=== PATIENT | male | born 1975 | race Caucasian/White ===

== ENCOUNTER 2025-05-28 07:27 | Emergency (ER) | payer BC, SELFPAY ==
--- OUTSIDE RECORDS SUMMARY | 2025-05-20 07:08 | XMS_ITS | Encounter Summary ---
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 Diagnoses Aneurysm of ascending aorta without rupture Thoracic ascending aortic aneurysm Procedures MRA Chest with Contrast Miriam Miller MD [address] [place] [address] Phone: tel: fax: [facility] [address] [place] [phone] Phone: tel: Referral ID Status Reason Start Date Expiration Date Visits Re quested Visits Authorized [id number] Closed 02/16/2025 02/16/2026 1 1 Reason for Visit * Auth/Cert (Routine) Specialty Diagnoses / Procedures Referred By Edson suresh Referred To Contact Cardiology [facility] [address] [place] [phone] Phone: tel: Referral ID Status Reason Start Date Expiration Date Visits Re quested Visits Authorized [id number] 1 1 Encounter Details Date Type Department Care Team (Latest Contact Info) Description 05/20/2025 7:08 AM CDT - 05/20/2025 11:59 PM CDT Hospital Encounter [facility] [address] [facility] [address] [place] [phone] Miriam Miller MD [address] [place] [address] Aneurysm of ascending aorta without rupture; Thoracic ascending aortic aneurysm Discharge Disposition: Home or Self Care Social History Tobacco Use Types Packs/Day Years Used Date Smoking Tobacco: Never Smokeless Tobacco: Never Alcohol Use Standard Drinks/Week Comments Yes 0 (1 standard drink = 0.6 oz pur e alcohol) 2 drinks week Adolescent Education Answer Date Record ed Getting School Help Needed Not on file 07/31 Sex and Gender Information Value Date Recorded Sex Assigned at Male 04/14/2019 8:19 AM CDT 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 Gender Identity Male 04/14/2019 8:19 AM CDT Sexual Orientation Straight 04/14/2019 8: 19 AM CDT documented as of this encounter Last Filed Vital Signs Vital Sign Reading Time Taken Comments Blood Pressure 134/90 05/20/2025 8:00 AM CDT Pulse 66 05/20/2025 8:00 AM CDT Temperature - - Respiratory Rate - - Oxygen Saturation - - Inhaled Oxygen Concentration - - Weight - - Height - - Body Mass Index - - documented in this encounter Medications at Time of Discharge albuterol (PROAIR HFA) 108 (90 Base) MCG/ACT inhaler Inhale 1-2 puffs into the lungs every 6 hours as needed 10/17/2018 SUMAtriptan (IMITREX) 50 MG tablet take 1-2 tablets by mouth as needed for headache. max 200mg in 24 hours 11 10/20/2018 documented as of this encounter Plan of Treatment Not on file documented as of this encounter Procedures Procedure Name Priority Date/Time Associated Diagnosis Comments MRA CHEST W CONTRAST Routine 05/20/2025 9:05 AM CDT Aneurysm of ascending aorta without rupture Thoracic ascending aortic aneurysm documented in this encounter Results * MRA Chest with Contrast (05/20/2025 9:05 AM CDT) Anatomical Region Laterality Modality Chest, SUBRAD IR PROCEDURE, UMP MR MRA, RAD MR Magnetic Resonance 05/20/2025 8:47 AM CDT Narrative 05/20/2025 1:50 PM CDT [facility] CMR Report Name: MAGEN JOEL : Scan Date: Electronically signed by Priyank Omer 13:50:11 SUMMARY ===== Clinical history: Aorta dilatation Comparison MRA: none 1. Aortic root dilatation measuring 4.3 cm. Ascending aorta dilatation measuring 4 cm. The transverse arch and descending thoracic aorta are normal in size without an aneurysm or dissection. 2. The aortic arch is left sided. There is a variant branching pattern of the arch vessels with direct origin of the left vertebral artery from the aortic arch. There is no coarctation. 3. The main and proximal branch pulmonary arteries are normal in size. 4. The systemic venous connections are normal. CONCLUSIONS: Aortic root dilatation measuring 4.3 cm. Ascending aorta dilatation measuring 4 cm. VASCULAR ===== UPPER VASCULAR ----- --- EVALUATION OF THE THORACIC AORTA COMMENTS (no comments) . ----- . EVALUATION DETAILS (Thoracic Aorta) ----- AORTIC ROOT Sinus of Valsalva Max Diameter A: 4.3 cm Sinus of Valsalva Max Diameter B: 3.9 cm Sinotubular Junction Max Diameter A: 3.7 cm Sinotubular Junction Max Diameter B: 3.3 cm + ----- + ASCENDING AORTA Dimension A: 4 cm Dimension B: 3.9 cm + ----- + ARCH OF THE AORTA Dimension A: 2.9 cm Dimension B: 2.6 cm + ----- + ISTHMUS OF THE AORTA Dimension A: 3 cm Dimension B: 2.8 cm + ----- + MID-DESCENDING AORTA Dimension A: 2.5 cm Dimension B: 2.4 cm + ----- + DISTAL DESCENDING AORTA Dimension A: 2.3 cm Dimension B: 2.2 cm . ----- . SCAN INFO ===== GENERAL ----- --- CONTRAST AGENT TYPE: Gadavist GD CONCENTRATION: 0.5 M VOLUME ADMINISTERED: 18 ml DOSAGE: 0.10 mmol/kg VITALS HEIGHT: 76.0 in HEIGHT: 193.0 cm WEIGHT: 199.0 lbs WEIGHT: 90.3 kgs BSA: 2.21 m^2 PULSE SEQUENCES 3D contrast enhanced MRA SETUP REASON(S) FOR SCAN: Aorta REFERRING PHYSICIAN: MIRIAM MILLER ATTENDING PHYSICIAN: MIRIAM JIN ----- --- ICD10 Codes I71.21, I71.21 Report generated by [employer], a product of [employer] Procedure Note Priyank Omer MD - 05/20/2025 [facility] CMR Report Name: MAGEN JOEL : Scan Date: Electronically signed by Priyank Omer 13:50:11 SUMMARY ===== Clinical history: Aorta dilatation Comparison MRA: none 1. Aortic root dilatation measuring 4.3 cm. Ascending aorta dilatationmeasuring 4 cm. The transverse arch and descending thoracic aorta are normal in size without an aneurysm ordissection. 2. The aortic arch is left sided. There is a variant branching pattern ofthe arch vessels with direct origin of the left vertebral artery from the aortic arch. There is nocoarctation. 3. The main and proximal branch pulmonary arteries are normal in size. 4. The systemic venous connections are normal. CONCLUSIONS: Aortic root dilatation measuring 4.3 cm. Ascending aorta dilatationmeasuring 4 cm. VASCULAR ===== UPPER VASCULAR ----- --- EVALUATION OF THE THORACIC AORTA COMMENTS (no comments) . ----- . EVALUATION DETAILS (Thoracic Aorta) ----- AORTIC ROOT Sinus of Valsalva Max Diameter A: 4.3 cm Sinus of Valsalva Max Diameter B: 3.9 cm Sinotubular Junction Max Diameter A: 3.7 cm Sinotubular Junction Max Diameter B: 3.3 cm + ----- + ASCENDING AORTA Dimension A: 4 cm Dimension B: 3.9 cm + ----- + ARCH OF THE AORTA Dimension A: 2.9 cm Dimension B: 2.6 cm + ----- + ISTHMUS OF THE AORTA Dimension A: 3 cm Dimension B: 2.8 cm + ----- + MID-DESCENDING AORTA Dimension A: 2.5 cm Dimension B: 2.4 cm + ----- + DISTAL DESCENDING AORTA Dimension A: 2.3 cm Dimension B: 2.2 cm . ----- . SCAN INFO ===== GENERAL ----- --- CONTRAST AGENT TYPE: Gadavist GD CONCENTRATION: 0.5 M VOLUME ADMINISTERED: 18 ml DOSAGE: 0.10 mmol/kg VITALS HEIGHT: 76.0 in HEIGHT: 193.0 cm WEIGHT: 199.0 lbs WEIGHT: 90.3 kgs BSA: 2.21 m^2 PULSE SEQUENCES 3D contrast enhanced MRA SETUP REASON(S) FOR SCAN: Aorta REFERRING PHYSICIAN: MIRIAM IMLLER ATTENDING PHYSICIAN: MIRIAM JIN ----- --- ICD10 Codes I71.21, I71.21 Report generated by [employer], a product of [employer] Miriam Miller MD [facility] [place] Edited Re sult - Final documented in this encounter Visit Diagnoses Diagnosis Aneurysm of ascending aorta without rupture documented in this encounter Administered Medications Inactive Administered Medications - up to 3 most recent administrations Medication Order MAR Action Action Date Dose Rate Site gadobutrol (GADAVIST) injection 18 mL 18 mL, Intravenous, ONCE, On Carmen 05/20/25 at 0900, For 1 dose, Supplied by, and administered by MRI. $Given 05/20/2025 9:06 AM CDT 18 mLs sodium chloride (PF) 0.9% PF flush 10-100 mL 10-100 mL, Intravenous, ONCE, On Carmen 05/20/25 at 0900, For 1 dose $Given 05/20/2025 9:14 AM CDT 40 mLs documented in this encounter Care Teams Auto Painter Helper Relationship Specialty Start Date End Date Juan Noble MD PCP - General Family Medicine - Sports Medicine 04/07/19 Miriam Miller MD [address] [place] [address] Cardiovascular Disease 05/17/23 Miriam Miller MD [address] [place] [address] Assigned Heart and Vascular Provider 12/06/23 documented as of this encounter
--- OUTSIDE RECORDS SUMMARY | 2025-05-20 07:08 | XMS_ITS | Encounter Summary ---
Author Organization [place] Address [address] [place] [address] Care Team Providers Care Manager Cardiac Cath Name Role Phone Juan Noble MD Primary Care Provider [phone] Myesha Menendez MD Unavailable [phone] Myesha Menendez MD Unavailable [phone] Reason for Referral * CV Testing (Routine) - Closed Specialty Diagnoses / Procedures Referred By Contac t Referred To Contact Cardiology Diagnoses Aneurysm of ascending aorta without rupture Thoracic ascending aortic aneurysm Procedures Echocardiogram Complete ZZHC TTE W/DOPPLER, COMPLETE ZZHC ECHO COMPLETE W DOPPLER W CONTRAST ZZHC ECHO COMPLETE W DOPPLER W/O CONTRAST ZZHC IV PUSH SINGLE, INITIAL SUBSTANCE ZZHC US GUIDE FOR PERICARDIOCENTESIS ZZHC ECHO MYOCARD BX ZZC INJECTION, PERFLUTREN LIPID MICROSPHERES, PER ML ZZHC STATISTIC IV PUSH SINGLE INITIAL SUBSTANCE FL ECHO MYOCARD BX FL INJECTION, PERFLUTREN LIPID MICROSPHERES, PER ML FL TTE W/DOPPLER, COMPLETE FL IV PUSH SINGLE, INITIAL SUBSTANCE FL TTE W/DOPPLER, COMPLETE FL TTE W/DOPPLER, COMPLETE HC US GUIDE FOR PERICARDIOCENTESIS HC ECHO MYOCARD BX HC IV PUSH SINGLE, INITIAL SUBSTANCE HC STATISTIC IV PUSH SINGLE INITIAL SUBSTANCE HC ECHO COMPLETE W DOPPLER W CONTRAST HC ECHO COMPLETE W DOPPLER W/O CONTRAST Myesha Menendez MD [address] [place] [address] Phone: tel: fax: [facility] [address] [address] Phone: tel: Referral ID Status Reason Start Date Expiration Date Visits Re quested Visits Authorized [id number] Closed 02/16/2025 02/16/2026 1 1 Reason for Visit * Auth/Cert (Routine) Specialty Diagnoses / Procedures Referred By Edson t Referred To Contact Cardiology [address] [address] Phone: tel: Referral ID Status Reason Start Date Expiration Date Visits Re quested Visits Authorized [id number] 1 1 Encounter Details Date Type Department Care Team (Latest Contact Info) Description 05/20/2025 7:08 AM CDT - 05/20/2025 11:59 PM CDT Hospital Encounter [address] [phone] Myesha Menendez MD [address] [place] [id number] Aneurysm of ascending aorta without rupture; Thoracic [...] AM CDT 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 Gender Identity Male 04/14/2019 8:19 AM CDT Sexual Orientation Straight 04/14/2019 8: 19 AM CDT documented as of this encounter Medications at Time of Discharge [...] Procedure Name Priority Date/Time Associated Diagnosis Comments ECHO COMPLETE Routine 05/20/2025 8:13 AM CDT Aneurysm of ascending aorta without rupture Thoracic ascending aortic aneurysm documented in this encounter Results * ECHO COMPLETE (05/20/2025 8:13 AM CDT) Pathologist [facility] LVEF 60-65% CARDIOLOGY RESULTS Anatomical Region Laterality Modality Echocardiography 05/20/2025 7:40 AM CDT Narrative 05/20/2025 9:54 AM CDT [id number]^ANGELA^MYESHA^ [facility] [address] [facility] [address] [place] [address] Name: MAGEN JOEL : 1975 Study Date: 05/20/2025 07:40 AM Age: 50 yrs Gender: Male Patient Location: [facility] Reason For Study: Aneurysm of ascending aorta without rupture, Thoracic ascending Ordering Physician: Myesha Menendez MD Referring Physician: Myesha Menendez MD Performed By: Evangelist Anderson BSA: 2.2 m2 Height: 76 in Weight: 199 lb HR: 60 BP: 106/65 mmHg Procedure Echocardiogram with two-dimensional, color and spectral Doppler. Interpretation Summary Left ventricular systolic function is normal. The visual ejection fraction is 60-65%. The right ventricle is normal in size and function. There is no mitral valve stenosis. Highly mobile mitral valve chordae tendineae with normal leaflet closure, no mitral valve prolapse likely redundant/elongated chordae tendineae, though torn chordae tendineae cannot be exlcuded. Trace mitral regurgitation. IVC diameter and respiratory changes fall into an intermediate range suggesting an RA pressure of 8 mmHg. Aortic root dilatation is present. Max diameter of the visualized portion 4.1 cm. Borderline ascending aorta, max diameter of visualized portion 3.9 cm. This study was compared to a TTE from 04/14/2019. Aortic root previously measured 3.9cm. Mitral valve apparatus better visualized on present study, likely no significant change. Left Ventricle The left ventricle is normal in size. There is normal left ventricular wall thickness. Left ventricular systolic function is normal. The visual ejection fraction is 60-65%. Left ventricular diastolic function is normal. No regional wall motion abnormalities noted. Right Ventricle The right ventricle is normal in size and function. Atria The left atrium is mildly dilated. Right atrial size is normal. There is no color Doppler evidence of an atrial shunt. Mitral Valve Highly mobile mitral valve chordae tendineae with normal leaflet closure, no mitral valve prolapse likely redundant/elongated chordae tendineae, though torn chordae tendineae cannot be exlcuded. Trace mitral regurgitation. There is no mitral valve stenosis. Tricuspid Valve There is trace tricuspid regurgitation. The right ventricular systolic pressure is approximated at 14.6 mmHg plus the right atrial pressure. Aortic Valve There is mild trileaflet aortic sclerosis. Pulmonic Valve The pulmonic valve is not well seen, but is grossly normal. Vessels Aortic root dilatation is present. Max diameter of the visualized portion 4.1 cm. Borderline ascending aorta, max diameter of visualized portion 3.9 cm. IVC diameter and respiratory changes fall into an intermediate range suggesting an RA pressure of 8 mmHg. MMode/2D Measurements & Calculations IVSd: 0.72 cm LVIDd: 5.4 cm LVIDs: 3.6 cm LVPWd: 0.84 cm FS: 33.6 % LV mass(C)d: 150.3 grams LV mass(C)dI: 68.0 grams/m2 Ao root diam: 4.1 cm asc Aorta Diam: 3.9 cm LVOT diam: 2.6 cm LVOT area: 5.3 cm2 Ao root diam index Ht(cm/m): 2.1 Ao root diam index BSA (cm/m2): 1.9 Asc Ao diam index BSA (cm/m2): 1.8 Asc Ao diam index Ht(cm/m): 2.0 LA Volume (BP): 80.1 ml LA Volume Index (BP): 36.2 ml/m2 RWT: 0.31 Doppler Measurements & Calculations MV E max juan: 68.0 cm/sec MV A max juan: 54.2 cm/sec MV E/A: 1.3 MV dec time: 0.13 sec PA acc time: 0.13 sec TR max juan: 191.0 cm/sec TR max P.6 mmHg E/E' av.3 Lateral E/e': 3.6 Medial E/e': 7.1 RV S Juan: 16.8 cm/sec Report approved by: Ehsan Pinon MD on 05/20/2025 09:54 AM Procedure Note Ehsan Pinon MD - 05/20/2025 [id number]^ANGELA^MYESHA^ [facility] [address] [facility] [address] [place] [address] Name: MAGEN JOEL : 1975 Study Date: 05/20/2025 07:40 AM Age: 50 yrs Gender: Male Patient Location: [facility] Reason For Study: Aneurysm of ascending aorta without rupture, Thoracic ascending Ordering Physician: Myesha Menendez MD Referring Physician: Myesha Menendez MD Performed By: Evangelist Anderson BSA: 2.2 m2 Height: 76 in Weight: 199 lb HR: 60 BP: 106/65 mmHg Procedure Echocardiogram with two-dimensional, color and spectral Doppler. Interpretation Summary Left ventricular systolic function is normal. The visual ejection fractionis 60-65%. The right ventricle is normal in size and function. There is no mitral valve stenosis. Highly mobile mitral valve chordae tendineae with normal leaflet closure, no mitral valve prolapse likely redundant/elongated chordae tendineae, though torn chordae tendineaecannot be exlcuded. Trace mitral regurgitation. IVC diameter and respiratory changes fall into an intermediate range suggesting an RA pressure of 8 mmHg. Aortic root dilatation is present. Max diameter of the visualized portion4.1 cm. Borderline ascending aorta, max diameter of visualized portion 3.9 cm. This study was compared to a TTE from 04/14/2019. Aortic root previously measured 3.9cm. Mitral valve apparatus better visualized on presentstudy, likely no significant change. Left Ventricle The left ventricle is normal in size. There is normal left ventricularwall thickness. Left ventricular systolic function is normal. The visualejection fraction is 60-65%. Left ventricular diastolic function is normal. Noregional wall motion abnormalities noted. Right Ventricle The right ventricle is normal in size and function. Atria The left atrium is mildly dilated. Right atrial size is normal. There isno color Doppler evidence of an atrial shunt. Mitral Valve Highly mobile mitral valve chordae tendineae with normal leaflet closure,no mitral valve prolapse likely redundant/elongated chordae tendineae,though torn chordae tendineae cannot be exlcuded. Trace mitral regurgitation.There is no mitral valve stenosis. Tricuspid Valve There is trace tricuspid regurgitation. The right ventricular systolic pressure is approximated at 14.6 mmHg plus the right atrial pressure. Aortic Valve There is mild trileaflet aortic sclerosis. Pulmonic Valve The pulmonic valve is not well seen, but is grossly normal. Vessels Aortic root dilatation is present. Max diameter of the visualized portion4.1 cm. Borderline ascending aorta, max diameter of visualized portion 3.9 cm.IVC diameter and respiratory changes fall into an intermediate rangesuggesting an RA pressure of 8 mmHg. MMode/2D Measurements & Calculations IVSd: 0.72 cm LVIDd: 5.4 cm LVIDs: 3.6 cm LVPWd: 0.84 cm FS: 33.6 % LV mass(C)d: 150.3 grams LV mass(C)dI: 68.0 grams/m2 Ao root diam: 4.1 cm asc Aorta Diam: 3.9 cm LVOT diam: 2.6 cm LVOT area: 5.3 cm2 Ao root diam index Ht(cm/m): 2.1 Ao root diam index BSA (cm/m2): 1.9 Asc Ao diam index BSA (cm/m2): 1.8 Asc Ao diam index Ht(cm/m): 2.0 LA Volume (BP): 80.1 ml LA Volume Index (BP): 36.2 ml/m2 RWT: 0.31 Doppler Measurements & Calculations MV E max juan: 68.0 cm/sec MV A max juan: 54.2 cm/sec MV E/A: 1.3 MV dec time: 0.13 sec PA acc time: 0.13 sec TR max juan: 191.0 cm/sec TR max P.6 mmHg E/E' av.3 Lateral E/e': 3.6 Medial E/e': 7.1 RV S Juan: 16.8 cm/sec Report approved by: Ehsan Pinon MD on 05/20/2025 09:54 AM Myesha Menendez MD CV ECHO ORDERABLES Edited Re sult - Final documented in this encounter Visit Diagnoses Diagnosis Aneurysm of ascending aorta without rupture documented in this encounter Care Teams Manager Cardiac Cath Relationship Specialty Start Date End Date Juan Noble MD PCP - General Family Medicine - Sports Medicine 04/07/19 Myesha Menendez MD [address] [place] [id number] Cardiovascular Disease 05/17/23 Myesha Menendez MD [address] [place] [address] Assigned Heart and Vascular Provider 12/06/23 documented as of this encounter
[2025-05-28 07:39] VITALS: BP 134/106; PULSE 86; RESP 20; TEMP 36.6; O2SAT 99
--- NOTE | 2025-05-28 08:14 | CRLHL7_ITS ---
For Patients: As a result of the Century Cures Act, medical imaging exams and procedure reports are released immediately into your electronic medical record. You may view this report before your referring provider. If you have questions, please contact your health care provider. Indication: . Technique: Abdomen 3 view. Comparison: None. 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 Increased stool burden seen within the large bowel most notably within the ascending colon. No acute osseous abnormality. Dictated by Hever Owen MD @ 05/28/2025 9:01:37 AM (Electronically Signed)
--- NOTE | 2025-05-28 08:16 | ED.GENADULT ---
HPI - General Adult General Chief complaint: Abdominal Pain Stated complaint: constipation and bleeding hemorrhoid Time Seen by Provider: 05/28/25 07:45 History of Present Illness HPI narrative: Patient is a 50 year white male who has not had a history constipation but was able have a bowel movement this morning has rectal pain as well as abdominal pain. He passed a little bit of blood he has a history of an inguinal hernia repair as a child. No other abdominal surgery. He has been generally healthy. He is on albuterol as needed sumatriptan amlodipine. Patient reports travel to [place] but no constant diarrhea or vomiting he is not nauseous or vomiting now. Reports lower abdominal cramping abdominal pain he has passed a little bit of blood. He has had a history of external hemorrhoids. No chest pain, shortness of breath. No history of chronic inflammatory bowel disease Related Data Home Medications ?Medication ?Instructions ?Recorded ?Confirmed albuterol sulfate 90 mcg/actuation 2 puff inhalation Q4H PRN 11/26/22 05/28/25 aerosol inhaler sumatriptan succinate 50 mg tablet 50 mg PO PRN 11/26/22 11/26/22 amlodipine 10 mg tablet 10 mg PO DAILY blood pressure 05/28/25 05/28/25 Allergies Allergy/AdvReac Type Severity Reaction Status Date / Time No Known Drug Allergies Allergy Verified 05/28/25 07:45 Review of Systems Status of ROS: Reports: 6 or more systems reviewed and unremarkable except as noted in History and below [facility] Medical History Migraines ?G43.909 - Migraine, unspecified, not intractable, without status migrainosus (ICD-10) Asthma ?J45.909 - Unspecified asthma, uncomplicated (ICD-10) Social History Smoking Status: Never smoker Do you use any of these nicotine containing products: None Second hand tobacco smoke exposure: No How often do you have a drink containing alcohol: never AUDIT-C Alcohol total score: 0 Non-prescribed substance use: denies use Exam Narrative: Exam Narrative: Objective: Vital signs show slightly elevated diastolic pressure, otherwise afebrile Alert or x3, distractible No facial asymmetry no scleral icterus Abdomen benign soft no rebound or peritonitis. Anal exam shows a some tiny fissure but no obvious external hemorrhoids. Because of his pain level a digital exam was not done. Extremities are no edema Neurologic nonfocal Const: Vital Signs, click to edit/add: Vital Signs - 24 hr 05/28/25 07:39 Temperature 98 F Pulse Rate [Pulse Oximeter] 86 Respiratory Rate 20 Blood Pressure [Ri ght Upper Arm] 134/106 H Pulse Oximetry 99 Oxygen Delivery Me thod Room Air Course Vital Signs Vital signs: Initial Vital Signs Temperature 98 F 05/28/25 07:39 Temperature Source Temporal Artery Scan 05/28/25 07:39 Pulse Rate 86 05/28/25 07:39 Respiratory Rate 20 05/28/25 07:39 Blood Pressure 134/106 H 05/28/25 07:39 Blood Pressure Mean 115 H 05/28/25 07:39 Blood Pressure Position Sitting 05/28/25 07:39 Pulse Oximetry 99 05/28/25 07:39 Oxygen Delivery Method Room Air 05/28/25 07:39 Vital Signs Temperature 98 F 05/28/25 07:39 Pulse Rate 86 05/28/25 07:39 Respiratory Rate 20 05/28/25 07:39 Blood Pressure 134/106 H 05/28/25 07:39 Pulse Oximetry 99 05/28/25 07:39 Oxygen Delivery Method Room Air 05/28/25 07:39 Temperature 98 F 05/28/25 07:39 Pulse Rate 86 05/28/25 07:39 Respiratory Rate 20 05/28/25 07:39 Blood Pressure 134/106 H 05/28/25 07:39 Pulse Oximetry 99 05/28/25 07:39 Oxygen Delivery Method Room Air 05/28/25 07:39 Medical Decision Making [facility] Narrative Medical decision making narrative: 50-year-old male with inability of a bowel movement since this morning with abdominal pain and rectal pain. Suspect he has a tiny anal fissure, I suspect he is constipated. Will check a flat night up upright abdomen. He has a benign appearing abdomen. Disposition pending findings above. Addendum 8:53 a.m.: The patient has a x-ray by my read shows significant stool content consistent with constipation. He did have a bowel movement after taking MiraLax this morning and he just had a bowel movement before his x-ray and he feels markedly better. I think allowing to go home rest light activity increase fluids. 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 That he can back off to once every other day for the MiraLax and continue the fiber. He has comfortable plan return as needed. Discharge Plan Discharge Clinical Impression: Constipation, Abdominal pain Patient Disposition: Home w/ Parent or Adult Condition: Improved Additional Instructions: Light activity for 2-3 days, then may need slowly resume normal activities. Take the MiraLax couple times a day for the next few days until stool is loose and then every other day, continue fiber. Get lots of fluid intake. Activity Level: Light activity Discharge Diet: High Fiber Prescriptions: No Action albuterol sulfate 90 mcg/actuation HFA aerosol inhaler 2 puff inhalation Q4H PRN sumatriptan succinate 50 mg tablet 50 mg PO PRN amlodipine 10 mg tablet 10 mg PO DAILY Follow Up/Referrals: Juan Noble MD [Primary Care Provider, Family Practice] Stand Alone Forms: [employer] Residential Info Instructions
--- OUTSIDE RECORDS SUMMARY | 2025-05-28 08:24 | XMS_ITS | Clinical Summary ---
Author Organization [facility] Address [address] [place] [address] Care Team Providers Care Director Clinical Research Name Role Phone Juan Aranda MD Primary Care Provider [phone] Allergies No known active allergies Medications albuterol HFA (PRO-AIR; VENTOLIN; PROVENTIL) 90 mcg/actuation inhalerIndication s:Mild intermittent asthma without complication (HC) Inhale 1-2 Puffs by mouth every 4 hours if needed. 36 g 2 10/21/2024 Active amLODIPine 10 mg tabletIndications :Primary hypertension Take 1 Tablet (10 mg) by mouth once daily. For blood pressure. 90 Tablet 3 02/08/2025 Active SUMAtriptan 50 mg tabletIndications :Migraine without aura and without status migrainosus, not intractable Take 1 or 2 tabs as needed for headache. May repeat 1 time 2 hours later if needed. Max dose: 200mg per 24 hrs. 9 Tablet 11 02/08/2025 Active Active Problems Problem Noted Date Diagnosed Date Sigmoid diverticulosis 02/07/2024 Overview (02/07/2024): 2022: incidentally found on Thoracic aorta CT . Never had symptoms. Primary hypertension 02/07/2024 Overview (05/22/2024): January 2024: starting amlodipine 2.5mg. February 2024: Increased amlodipine to 5mg. May 2024: increased amlodipine to 10mg. RERE 07/05/2022 AHI-5 07/11/2022 Thoracic ascending aortic aneurysm 04/14/2019 Overview (11/27/2023): March 2019: incidentally found 4.[address] Aneurysm on CT Scan at Emergency room. Aortopathy clinic consult at [facility] April 2019: Dr. Menendez recommended yearly surveillance with imaging, beta-laura if needed for systolic blood pressure goal to stay under 130. November 2023: [facility] follow up , suggested 2 year imaging follow up and watching blood pressure ( beta laura if needed). Cervicalgia 09/20/2005 Nonallopathic lesion of cerv ical region, not elsewhere classified 09/20/2005 Pain in thoracic spine 09/20/2005 Unspecified asthma 06/08/2005 Overview (09/05/2013): May 2011: Asthma Action plan completed. symptoms intermittent. 06/26/2012 ATAQ/Asthma Action plan completed. Patient stopped adviar and no change in symptoms, using albuterol 2-3 times per month. 09/04/2013 ATAQ/Asthma Action plan completed. Migraine, unspecified, witho ut mention of intractable migraine without mention of status migrainosus 06/08/2005 Resolved Problems Problem Noted Date Diagnosed Date Resolved Date Nonallopathic lesion of thor acic region, not elsewhere classified 09/20/2005 02/07/2024 Immunizations Immunization Administration Dates Next Due AMB Influenza, IIV4 PF (=>6 mos Flulaval,Fluzone Fluarix)(Flu Clinic Only) 07/05/2020 COVID-19 vaccine (Mark43 NTYatango 30mcg/0.3mL) PF, MDV 09/26/2021,02/08/2021,01/18/2021 DTP 10/14/2003 Influenza A (H1N1), Inactiva shayan (Age >=3 Years) 12/16/2009 Influenza Virus, Unspecified 07/16/2016,08/24/20 09 Influenza, IIV3 (Age >=3 years) 07/07/2019,07/16,07/12/2011 Influenza, IIV4 09/21/2023,,07/29/2017,2014,09/13/2014 Influenza, IIV4 (=>6mos) MDV 07/14/2018 Influenza,CCIIV4 PRESERV FREE 09/01/2022 Td (Age >=7 Years) 11/13/2019 Tdap 12/16/2009 Family History Medical History Relation Name Comments Good Health Brother Faheem L&W Asthma Good Health Father Kwan Hearing loss Father Kwan 1949 L&W Back P roblem Heart Disease Maternal Grandfather '19 L& W Heart Dis, 84 heart Dis Cancer-breast Mother Asiya Cancer Paternal Grandfather ca ncer 48 Good Health Sister Carol L&W Asthma Relation Name Status Comments Brother Faheem Father Kwan Maternal Grandfather Maternal Grandmother Mother Asiya Paternal Grandfather Paternal Grandmother Sister Carol Social History Tobacco Use Types Packs/Day Years Used Date Smoking Tobacco: Never Smokeless Tobacco: Never Tobacco Cessation:Counseling Given: Not Answered Alcohol Use Standard Drinks/Week Comments Yes 1 (1 standard drink = 0.6 oz pure alcohol) 2021 very occasional, a copule drinks per month. PHQ-2 Answer Date Recorded PHQ-2 TOTAL SCORE 0 02/07/2024 Social Connections Answer Date Recorded Do you often feel lonely or isolated from those around you? 0 02/08/2025 Financial Resource Strain Answer Date R ecorded Difficulty of Paying Living Expenses 3 02/08/2025 Difficulty of Paying Living Expenses Not on file 02/08/2025 Food Insecurity Answer Date Recorded Do you worry your food will run out before you are able to buy more? 1 02/08/2025 Transportation Needs Answer Date Record ed Does lack of transportation keep you from medica l appointments? 1 02/08/2025 Does lack of transportation keep you from work, meetings or getting things that you need? 1 02/08/2025 Housing Stability Answer Date Recorded What is your housing situation today? 1 02/08/2025 Utilities Answer Date Recorded Do you have trouble paying f or utilities (for example, heat, electricity, water, phone)? 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 Gender Identity Not on file Sexual Orientation Not on file Obstetrics History Last Filed Vital Signs Vital Sign Reading Time Taken Comments Blood Pressure 128/84 02/08/2025 7:28 AM CDT Pulse 64 02/08/2025 7:02 AM CDT Temperature 36.6 C (97.8 F) 03/15/2023 7:33 AM CDT Respiratory Rate 14 01/30/2023 8:55 AM CDT Oxygen Saturation 100% 02/08/2025 7:02 AM CDT Inhaled Oxygen Concentration - - Weight 86.3 kg (190 lb 3.2 oz) 02/08/2025 7:02 A M CDT Height 192 cm (6' 3.59) 02/08/2025 7:02 AM CDT Body Mass Index 23.4 02/08/2025 7:02 AM CDT Plan of Treatment Health Maintenance Due Date Last Done Comments HIV for age 15-65 02/25/1991 Hepatitis B series for 19+ (1 of 3 - 19+ 3-dose series) 02/25/1995 COVID-19 vaccine series (2023- season) 2024 09/21/2023, 10/26/2022, 09/26/2021, Additional history exists Depression screening for age 12+ 02/06/2025 02/07/2024, 03/15/2023, 03/09/2022, Additional history exists Influenza Vaccine (#1) 2025 , 09/01/2022, 07/12/2021, Additional history exists BMI (ht and wt on same day) for age 18+ 02/08/2026 02/08/2025, 02/07/2024, 03/15/2023, Additional history exists Lipids for age 45-75 02/06/2029 02/07/2024, 03/09/2022, 02/07/2021, Additional history exists Tetanus booster 11/13/2029 11/13/2019, 12/16/2009 Colonoscopy through age 75 01/30/203301/30, 01/30/2023, 01/30/2023 Hepatitis C screening for age 18-79 Completed 02/08/2025 Pneumococcal series for age 6-49 Aged Out No longer eligible based on patient's age to complete this topic Procedures Procedure Name Priority Date/Time Associated Diagnosis Comments ANTI HCV Routine 02/08/2025 7:42 AM CDT Need for hepatitis C screening test LIPID PANEL W REFLEX MEASURED LDL Routine 02/07/2024 8:53 AM CDT Screening cholesterol level COLONOSCOPY SCREENING Routine 01/30/2023 7:30 AM CDT Screen for colon cancer from Last 3 Months or Most Recently Relevant to Health Maintenance Results * ANTI HCV (02/08/2025 7:42 AM CDT) HEPATITIS C ANTIBODY NON-REACTI VE NON-REACT SUZY [facility] [place] Comment: HCV antibody was non-reactive. There is no laboratory evidence of HCV infection. In most cases, no further action is required. However, if recent HCV exposure is suspected, a test for HCV RNA (test code 74966) is suggested. For additional information please refer to http://education.Intacct/faq/DDT54x7 (This link is being provided for informational/ educational purposes only.) Blood BLOOD SPECIMEN / Unknown 02/08/2025 7:42 AM CDT 02/08/2025 7:42 AM CDT Juan Aranda MD SEND OUTS Final Res ult [employer] [facility] [address] [place] [address], [facility] [address] [place] [address] * LIPID PANEL W REFLEX MEASURED LDL (02/07/2024 8:53 AM CDT) CHOLESTEROL,TOTAL 178 100 - 199 mg/dL 02/07/2024 5:40 PM CDT [facility] [employer] Comment: Cholesterol, Total Reference Ranges Desirable <200 mg/dL Borderline 200-239 mg/dL High >=240 mg/dL TRIGLYCERIDES 59 <150 mg/dL 02/07/2024 5:40 PM CDT [facility] HDL CHOLESTEROL 57 >40 mg/dL 5:40 PM CDT [facility] NON-HDL CHOLESTEROL 121 <145 mg/dl 02/07/2024 5:40 PM CDT [facility] CHOL/HDL RATIO 3.12 <4.50 02/07/2024 5:40 PM CDT [facility] LDL CHOLESTEROL 109 <=130 mg/dL 02/07/2024 5:40 PM CDT [facility] VLDL CHOLESTEROL 12 <=30 mg/dL 02/07/2024 5:40 PM CDT [facility] PROVIDER ORDERED STATUS FASTING 02/07/2024 5:40 PM CDT [facility] Blood BLOOD SPECIMEN / Unknown Venipuncture / Unknown 02/07/2024 8:53 AM CDT 02/07/2024 9:00 AM CDT us Juan Aranda MD CHEMISTRY Final Res ult [facility] [address] [place] [address], [place] * COLONOSCOPY (01/30/2023 7:34 AM CDT) 01/30/2023 7:34 AM CDT Narrative Transcriptions Cesar Garcia MD - 01/30/2023 1:39 PM CDT Patient Name: Anthony Steward Procedure Date: 01/30/2023 Gender: Male Date of : 1975 Admit Type: Outpatient Procedure: Colonoscopy Proceduralist: Cesar Garcia MD , Dacia Jimenez (Nurse), Crissy Wilburn (Nurse) Referring MD: Juan Aranda Indications/Pre-Op Diagnosis: Screening for colorectal malignant neoplasm, This is the patient's first colonoscopy Medications: Fentanyl 150 micrograms IV, Midazolam 4 mgIV Procedure Description: The patient had risks, benefits and alternatives explained to andgave informed consent. The patient had a stable cardiopulmonary status and judged an adequate candidate for conscious sedation. The [id number] was passed through the anus and advanced to the cecum, identified by appendiceal orifice and ileocecal valve. Thecolonoscopy was performed without difficulty. The patient tolerated the procedure well. The quality of the bowel preparation was good. Anatomical landmarks were photographed. Complications: No immediate complications. Estimated Blood Loss & Specimen: Estimated blood loss: none. Estimated blood loss: none. Specimen collected - Yes and sent to Laboratory Findings: The perianal and digital rectal examinations were normal. The entire examined colon appeared normal. Impressions/Post-Op Diagnosis: - The entire examined colon is normal. - No specimens collected. Recommendation: - Patient has a contact number available for emergencies. The signsand symptoms of potential delayed complications were discussed with the patient. Return to normal activities tomorrow. Written discharge instructions were provided to the patient. - Resume previous diet. - Continue present medications. - Repeat colonoscopy in 10 years for screening purposes. Moderate Sedation: A time out was performed before the procedure. Moderate (conscious) sedation was administered by the endoscopy nurse and supervised bythe endoscopist. The following parameters were monitored: oxygensaturation, heart rate, blood pressure, EKG, CO2, respiratory rate, adequacy of pulmonary ventilation and reponse to care. Please refer to the patient's medical record flowsheets and nursing notes for moderate sedation details. Total physician intraservice time was 23 minutes. Cesar Garcia MD 01/30/2023 8:42:58 AM This report has been signed electronically. Note Initiated On: 01/30/2023 7:34 AM Procedure Code(s): --- Professional --- 37023, Colonoscopy, flexible; diagnostic, including collection of specimen(s) bybrushing or washing, when performed (separateprocedure) Diagnosis Code(s): --- Professional --- Z12.11, Encounter for screening formalignant neoplasm of colon CPT copyright 2021 [employer]. All rights reserved. The codes documented in this report are preliminary and upon salvager reviewmay be revised to meet current compliance requirements. Scope In: 8:11:54 AM Scope Withdrawal Time 0 hours 9 minutes 50 seconds Scope Out: 8:30:46 AM us Cesar Garcia MD PROCEDURE ORD Edited Re sult - Final from Last 3 Months or Most Recently Relevant to Health Maintenance Insurance [facility] Care Teams Director Clinical Research Relationship Specialty Start Date End Date Juan Aranda MD PCP - General 12/14/09
--- OUTSIDE RECORDS SUMMARY | 2025-05-28 08:24 | XMS_ITS | Encounter Summary ---
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
--- OUTSIDE RECORDS SUMMARY | 2025-05-28 08:24 | XMS_ITS | Encounter Summary ---
Author Organization [facility] Address [address] [place] [address] Care Team Providers Care Multi Purpose Machine Operator Name Role Phone Juan Noble MD Primary Care Provider [phone] Miriam Menendez MD Unavailable [phone] Miriam Menendez MD Unavailable [phone] Encounter Details Date Type Department Care Team (Latest Contact Info) Description 05/20/2025 Travel Social History Tobacco Use Types Packs/Day Years [...] AM CDT Legal Sex Male 5:04 AM PATIENT ADVOCATE Gender Identity Male 04/14/2019 8:19 AM CDT Sexual Orientation Straight 04/14/2019 8: 19 AM CDT documented as of this encounter Plan of Treatment Not on file documented as of this encounter Visit Diagnoses Not on filedocumented in this encounter Care Teams Multi Purpose Machine Operator Relationship Specialty Start Date End Date Juan Noble MD PCP - General Family Medicine - Sports Medicine 04/07/19 Miriam Menendez MD [address] [place] [id number] Cardiovascular Disease 05/17/23 Miriam Menendez MD [address] [place] [address] Assigned Heart and Vascular Provider 12/06/23 documented as of this encounter
--- OUTSIDE RECORDS SUMMARY | 2025-05-28 08:24 | XMS_ITS | Encounter Summary ---
Author Organization [facility] Address [address] [place] [address] Care Team Providers Care Architecture Manager Name Role Phone Juan Noble MD Primary Care Provider [phone] Miriam Menendez MD Unavailable [phone] Miriam Menendez MD Unavailable [phone] Encounter Details Date Type Department Care Team (Late st Contact Info) Description 05/24/20[place] [facility] [place] [facility] [address] [place] [address] Lizette Martinez RN Social History Tobacco Use Types Packs/Day [...] AM CDT 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
--- OUTSIDE RECORDS SUMMARY | 2025-05-28 08:24 | XMS_ITS | Encounter Summary ---
Author Organization [place] Address [address] [facility] [place] [address] Care Team Providers Care Nursery Attendant Name Role Phone Juan Noble MD Primary Care Provider [phone] Miriam Menendez MD Unavailable [phone] Miriam Menendez MD Unavailable [phone] Reason for Referral * Consultation (Routine: Next available opening) - Pending Review Specialty Diagnoses / Procedures Referred By Edson suresh Referred To Contact Genetics, Clinical Diagnoses Aneurysm of ascending aorta without rupture Miriam Menendez MD [address] [place] [address] Phone: tel: fax: Referral ID Status Reason Start Date Expiration Date V isits Requested Visits Authorized [id number] Pending Review 05/24/2025 05/24/2026 1 1 Question Answer Reason for Referral: Cardiology Patient Scheduling Instructions: [facility] will call you to coordinate your care as prescribed by your provider. If you don't hear from a vendor representatives within 2 business days, please call [phone]. Additional Information: Aortic aneurysm Comments We will make every effort to schedule with your recommended provider. However, to minimize your waiting time for the appointment, we may offer an appointment with an alternative provider. Please be aware that coverage of these services is subject to the terms and limitations of your health insurance plan. Call member services at your health plan with any benefit or coverage questions. [facility] will call you to coordinate your care as prescribed by your provider. If you don't hear from a vendor representatives within 2 business days, please call [phone]. * Consultation (Routine: Next available opening) - Pending Review Specialty Diagnoses / Procedures Referred By Edson suresh Referred To Contact Cardiovascular Disease Diagnoses Aneurysm of ascending aorta without rupture Miriam Menendez MD [address] [place] [address] Phone: tel: fax: Referral ID Status Reason Start Date Expiration Date V isits Requested Visits Authorized [id number] Pending Review 05/24/2025 05/24/2026 1 1 Question Answer Follow-up with: Other Window Caser - Danii, Negra or Juanito Patient Scheduling Instructions: [facility] will call you to coordinate your care as prescribed by your provider. If you have concerns about scheduling, please call [phone]. Comments [facility] will call you to coordinate your care as prescribed by your provider. If you have concerns about scheduling, please call [phone]. * Diagnostic Imaging MRI (Routine) - Pending Review Specialty Diagnoses / Procedures Referred By Edson suresh Referred To Contact Radiology. 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 Menendez: Miriam Menendez MD to Rob Marquez RN 05/24/25 12:21 PM Thanks! By 3D imaging appears stable, echo can show much variability given 2D imaging. Recommend follow up MRA in 1 year with Ali/Juanito/Vats follow up. At any time as well he can opt for genetic testing and we could place that referral to gene counseling in the meantime. Please notify him of my departure and recommended follow up plan. Thank you! Dr. Menendez Called pt, no answer. Left VM requesting call back to Team 4 at [phone]. Addendum 05/24/25 - Called and spoke with pt. Reviewed Dr. Menendez's recommendations and notified pt of her upcoming departure. Pt verbalized understanding and agreement with plan. Pt noted he is interested in genetic counseling and would like a referral. Pt found out last week his father has an enlarged aorta that has been monitored for many years and has been stable. Pt stated his father had sometype of genetic testing done but he is not sure what. Discussed if he is able to obtain those results that would be useful to have when he sees the genetic counselor. Pt in agreement with plan. Orders placed for genetics referral and MRA and follow up in 1 year. * Telephone Encounter - Rob Marquez RN - 05/20/2025 1:45 PM CDT Results noted. Patient does not have any future F/U apt scheduled. RN will send to Dr. Menendez to inquire if any recommendations or if apt needed based on results. MRA 05/20/25 Clinical history: Aorta dilatation Comparison MRA: none [...] cm. Ascending aorta dilatation measuring 4 cm. 05/20/25 ECHO Interpretation Summary Left ventricular systolic function is [...] on present study, likely no significant change. documented in this encounter Plan of Treatment Scheduled Orders Name Type Priority Associated Diagnoses Orde r Schedule MRI Angiogram chest w & w/o contrast Imaging Routine Aneurysm of ascending aorta without rupture Thoracic ascending aortic aneurysm Expected: 05/20/2026 (Approximate), Expires: 05/24/2026 Scheduled Referrals Name Type Priority Associated Diagnoses Orde r Schedule Follow-Up with Cardiology Referral Routine: Next available opening Aneurysm of ascending aorta without rupture Expected: 05/24/2026 (Approximate), Expires: 05/24/2026 Adult Genetics & Metabolism Referral Referral Routine: Next available opening Aneurysm of ascending aorta without rupture Expected: 05/31/2025 (Approximate), Expires: 08/29/2025 documented as of this encounter Visit Diagnoses Diagnosis Aneurysm of ascending aorta without rupture- Primary documented in this encounter Care Teams Nursery Attendant Relationship Specialty Start Date End Date Juan Noble MD PCP - General Family Medicine - Sports Medicine 04/07/19 Miriam Menendez MD [address] [place] [address] [id number] Cardiovascular Disease 05/17/23 Miriam Menendez MD [address] [place] [address] [phone] Assigned Heart and Vascular Provider 12/06/23 documented as of this encounter
--- OUTSIDE RECORDS SUMMARY | 2025-05-28 08:25 | XMS_ITS | Clinical Summary ---
Author Organization [place] Address [address] [place] [address]. [place] [address] Care Team Providers Care Project Controls Specialist Name Role Phone Juan Noble MD Primary Care Provider [phone] Miriam Miller MD Unavailable [phone] Miriam Miller MD Unavailable [phone] Allergies No known active allergies Medications albuterol (PROAIR HFA) 108 (90 Base) MCG/ACT inhaler Inhale 1-2 puffs into the lungs every 6 hours as needed 10/17/2018 Active SUMAtriptan (IMITREX) 50 MG tablet take 1-2 tablets by mouth as needed for headache. max 200mg in 24 hours 11 10/20/2018 Active Active Problems Problem Noted Date Diagnosed Date Thoracic ascending aortic aneurysm 04/14/2019 Overview (04/14/2019): March 2019: incidentally found 4.1 Ascending Aortic Aneurysm on CT Scan at Emergency room. Cervicalgia 09/20/2005 Nonallopathic lesion of thoracic region 09/20/20 05 Pain in thoracic spine 09/20/2005 Essential hypertension 06/08/2005 Migraine headache 10/14/1982 Asthma 1976 Overview (04/14/2019): May 2011: Asthma Action plan completed. symptoms intermittent. 06/26/2012 ATAQ/Asthma Action plan completed. Patient stopped adviar and no change in symptoms, using albuterol 2-3 times per month. 09/04/2013 ATAQ/Asthma Action plan completed. Encounters Date Type Department Care Team Description 05/24/2025 MyC Medical Advice [facility] [address] [facility] [address] [place], [place] [phone] Lizette Martinez RN 05/20/2025 7:08 AM CDT - 05/20/2025 11:59 PM CDT Hospital Encounter [facility] [address] [facility] [address] [place] [phone] Miriam Miller MD Aneurysm of ascending aorta without rupture; Thoracic ascending aortic aneurysm Discharge Disposition: Home or Self Care 05/20/2025 7:08 AM CDT - 05/20/2025 11:59 PM CDT Hospital Encounter [facility] [address] [facility] [address] [place] [phone] Miriam Miller MD Aneurysm of ascending aorta without rupture; Thoracic ascending aortic aneurysm Discharge Disposition: Home or Self Care 05/20/2025 Results Follow-Up [facility] [address] [facility] [address] [place] [phone] Rob Marquez RN 05/20/2025 Telephone [facility] [address] [facility] [address] [place], [place] [phone] Rob Marquez RN 05/20/2025 Travel 05/15/2025 Travel from Last 3 Months Immunizations Immunization Administration Dates Next Due Flu, Unspecified 07/16/2016 [id number] Novel Flu 12/16/2009 Historical DTP/aP 10/14/2003 Influenza (H1N1) 12/16/2009 Influenza (IIV3) PF 08/09/2015, 4,07/07/2013,2011,07/12/2011,08/17/2004 Influenza (prior to 2023) 07/25/2016,08/24/2009 Influenza Vaccine >6 months,quad, PF 07/29/2017, 07/18/2015,09/13/2014 Influenza Vaccine IM Ages 6- 35 Months 4 Valent (PF) 07/30/2017 Influenza Vaccine, 6+MO IM (QUADRIVALENT W/PRESERVATIVES) 07/14/2018 TDAP Vaccine (Adacel) 12/16/2009 Td (Adult), Adsorbed 09/06/2004 Family History Medical History Relation Comments Heart Disease Maternal Grandfather Relation Status Comments Brother Alive Daughter Alive Father Alive Maternal Grandfather heart disea se Mother Alive Sister Alive Son 1 Alive Son 2 Alive Social History Tobacco Use Types Packs/Day Years Used Date Smoking Tobacco: Never Smokeless Tobacco: Never Tobacco Cessation:Counseling Given: Not Answered Alcohol Use Standard Drinks/Week Comments Yes 0 (1 standard drink = 0.6 oz pur e alcohol) 2 drinks week Adolescent Education Answer Date Record ed Getting School Help Needed Not on file 07/31 Sex and Gender Information Value Date Recorded Sex Assigned at Male 04/14/2019 8:19 AM CDT 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 Gender Identity Male 04/14/2019 8:19 AM CDT Sexual Orientation Straight 04/14/2019 8: 19 AM CDT Last Filed Vital Signs Vital Sign Reading Time Taken Comments Blood Pressure 134/90 05/20/2025 8:00 AM CDT Pulse 66 05/20/2025 8:00 AM CDT Temperature 36.9 C (98.4 F) 04/07/2019 10:12 AM CDT Respiratory Rate 7 04/07/2019 10:45 AM CDT Oxygen Saturation 97% 04/14/2019 11:32 AM CDT Inhaled Oxygen Concentration - - Weight 90.3 kg (199 lb 1.6 oz) 11/22/2023 8:40 A M DISTRICT LOSS PREVENTION MANAGER Height 193 cm (6' 4) 11/22/2023 8:40 AM DISTRICT LOSS PREVENTION MANAGER Body Mass Index 24.24 11/22/2023 8:40 AM DISTRICT LOSS PREVENTION MANAGER Plan of Treatment Health Maintenance Due Date Last Done Comments ADVANCE CARE PLANNING 1975 ANNUAL REVIEW OF HM ORDERS 1975 ASTHMA ACTION PLAN [address] ASTH[address] COLONOGRAPHY 1975 FIT 1975 FLEX SIG 1975 sDNA (Cologuard) 1975 HIV SCREENING 02/25/1991 HEPATITIS B VACCINE (1 of 3 - 19+ 3-dose series) 02/25/1995 PNEUMOCOCCAL VACCINE: PEDIATRICS (0 to 5 YEARS) AND AT-RISK PATIENTS (6 to 49 YEARS) (1 of 2 - PCV) 02/25/1995 LIPID 2016 BMP 04/07/2020 04/07/2019 DIABETES SCREENING 04/07/2022 04/07/2019 COVID-19 VACCINE ( season) 2024 09/21/2023, 10/26/2022, 09/26/2021, Additional history exists PHQ-2 (once per calendar year) 2024 INFLUENZA VACCINE (#1) 2025 3, 09/01/2022, 07/12/2021, Additional history exists YEARLY PREVENTIVE VISIT 02/08/2026 02/09/20, 02/07/2024, 03/15/2023, Additional history exists ZOSTER VACCINE (1 of 2) 02/25/2026 DTAP/TDAP/TD VACCINE (5 - Td or Tdap) 11/13/2029 11/13/2019, 12/16/2009, 09/06/2004, Additional history exists COLONOSCOPY 01/30/2033 01/30/2023 COLORECTAL CANCER SCREENING 01/30/2033 HEPATITIS C SCREENING Completed 02/08/2025 HPV VACCINE (No Doses Required) Completed MENINGITIS VACCINE Aged Out No longer eligible based on patient's age to complete this topic Procedures Procedure Name Priority Date/Time Associated Diagnosis Comments MRA CHEST W CONTRAST Routine 05/20/2025 9:05 AM CDT Aneurysm of ascending aorta without rupture Thoracic ascending aortic aneurysm ECHO COMPLETE Routine 05/20/2025 8:13 AM CDT Aneurysm of ascending aorta without rupture Thoracic ascending aortic aneurysm BASIC METABOLIC PANEL STAT 04/07/2019 10:10 AM CDT from Last 3 Months or Most Recently Relevant to Health Maintenance Results * MRA Chest with Contrast (05/20/2025 9:05 AM CDT) Anatomical Region Laterality Modality Chest, SUBRAD IR PROCEDURE, UMP MR MRA, RAD MR Magnetic Resonance 05/20/2025 8:47 AM CDT Narrative 05/20/2025 1:50 PM CDT [facility] CMR Report Name: MAGEN JOEL : [...] Procedure Note Priyank Omer MD - 05/20/2025 [facility] CMR Report Name: MAGEN JOEL : [...] Precession, a product of [employer] us Miriam Miller MD [facility] MRI ORDERABLES Edited Re sult - Final * ECHO COMPLETE (05/20/2025 8:13 AM CDT) LVEF 60-65% CARDIOLOGY RESULTS Anatomical Region Laterality Modality Echocardiography 05/20/2025 7:40 AM CDT Narrative 05/20/2025 9:54 AM CDT [id number]^ANGELA^MIRIAM^ [employer] [facility] Heart Echocardiography Laboratory [address] [facility] [address] [place] [address] Name: MAGEN JOEL : 1975 Study Date: 05/20/2025 07:40 AM Age: 50 yrs Gender: Male Patient Location: [facility] Reason For Study: Aneurysm of ascending aorta without rupture, Thoracic ascending Ordering Physician: Miriam Miller MD Referring Physician: Miriam Miller MD Performed By: Evangelist Anderson BSA: 2.2 [...] Procedure Note Ehsan Pinon MD - 05/20/2025 [id number]^ANGELA^MIRIAM^ [employer] [facility] Heart [facility]ch[facility] [address] [facility] [address] [place] [address] Name: MAGEN JOEL : 1975 Study Date: 05/20/2025 07:40 AM Age: 50 yrs Gender: Male Patient Location: [facility] Reason For Study: Aneurysm of ascending aorta without rupture, Thoracic ascending Ordering Physician: Miriam Miller MD Referring Physician: Miriam Miller MD Performed By: Evangelist Anderson BSA: 2.2 [...] Ehsan Pinon MD on 05/20/2025 09:54 AM us Miriam Miller MD CV ECHO ORDERABLES Edited Re sult - Final * Basic metabolic panel (04/07/2019 10:10 AM CDT) Sodium 138 133 - 144 mmol/L 04/07/2019 10:35 AM [facility] Potassium 4.2 3.4 - 5.3 mmol/L 04/07/2019 10:35 AM [facility] Chloride 105 94 - 109 mmol/L 04/07/2019 10:35 AM [facility] Carbon Dioxide 29 20 - 32 mmol/L 04/07/2019 10:40 AM [facility] Anion Gap 4 3 - 14 mmol/L 04/07/2019 10:40 AM [facility] Glucose 95 70 - 99 mg/dL 04/07/2019 10:40 AM [facility] Urea Nitrogen 17 7 - 30 mg/dL 04/07/2019 10:40 AM [facility] Creatinine 0.97 0.66 - 1.25 mg/dL 04/07/2019 10:40 AM [facility] GFR Estimate >90 >60 mL/min/{1. 73_m2} 04/07/2019 10:40 AM [facility] Comment: Non GFR Calc Starting 09/30/2018, serum creatinine based estimated GFR (eGFR) will be calculated using the Chronic Kidney Disease Epidemiology Collaboration (CKD-EPI) equation. GFR Estimate If Black >90 >60 mL/min/{1. 73_m2} 04/07/2019 10:40 AM [facility] Comment: GFR Calc Starting 09/30/2018, serum creatinine based estimated GFR (eGFR) will be calculated using the Chronic Kidney Disease Epidemiology Collaboration (CKD-EPI) equation. Calcium 8.8 8.5 - 10.1 mg/dL 04/07/2019 10:40 AM [facility] Blood specimen (specimen) 04/07/2019 10:10 AM CDT 04/07/2019 10:21 AM CDT us Alie Araujo MD LAB - BLOOD ORDERABLES Final R esult [facility] [address] [place] [address], [facility] [phone] from Last 3 Months or Most Recently Relevant to Health Maintenance [place] Care Teams Project Controls Specialist Relationship Specialty Start Date End Date Juan Noble MD PCP - General Family Medicine - Sports Medicine 04/07/19 Miriam Miller MD [address] [place], [place] [id number] Cardiovascular Disease 05/17/23 Miriam Miller MD [address] [place] [address] [phone] Assigned Heart and Vascular Provider 12/06/23
--- OUTSIDE RECORDS SUMMARY | 2025-05-28 08:25 | XMS_ITS | Encounter Summary ---
Author Organization [place] Address [address] [place] [address] Care Team Providers Care Retail Advertising Executive Name Role Phone Juan Noble MD Primary Care Provider Miriam Menendez MD Unavailable [phone] Miriam Menendez MD Unavailable [phone] Miriam Menendez MD Unavailable [phone] Miriam Menendez MD Unavailable [phone] Encounter Details Date Type Department Care Team (Late st Contact Info) Description 04/24/2019 MyC Medical Advice [facility] [address] [phone] Miriam Menendez MD [address] [place] [address] Social History Tobacco Use Types Packs/Day Years Used Date Smoking Tobacco: Never Assessed Sex and Gender Information Value Date Recorded Sex Assigned at Male 04/14/2019 8:19 AM CDT 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 Gender Identity Male 04/14/2019 8:19 AM CDT Sexual Orientation Straight 04/14/2019 8: 19 AM CDT documented as of this encounter Plan of Treatment Not on file documented as of this encounter Visit Diagnoses Not on filedocumented in this encounter Care Teams Retail Advertising Executive Relationship Specialty Start Date End Date Juan Noble MD PCP - General Family Medicine - Sports Medicine 04/07/19 Miriam Menendez MD [address] [place] [address] Assigned Heart and Vascular Provider 08/05/20 10/15/20 Miriam Menendez MD [address] [place] [address] [phone] Assigned Heart and Vascular Provider 05/21/21 11/23/22 Miriam Menendez MD [address] [place] [address] [phone] MD Cardiovascular Disease 05/17/23 Miriam Menendez MD [address] [place] [address] [phone] Assigned Heart and Vascular Provider 12/06/23 documented as of this encounter
--- OUTSIDE RECORDS SUMMARY | 2025-05-28 08:25 | XMS_ITS | Encounter Summary ---
Author Organization [place] Address [address] [place] [address] Care Team Providers Care Project Development Engineer Name Role Phone Juan Noble MD Primary Care Provider [phone] Miriam Menendez MD Unavailable [phone] Miriam Menendez MD Unavailable [phone] Miriam Menendez MD Unavailable [phone] Encounter Details Date Type Department Care Team (Late st Contact Info) Description 07/16/2022 [facility] Medical Advice [facility] [address] [place] [address] Miriam Menendez MD [address] [place] [address] Social History Tobacco Use Types Packs/Day Years Used Date Smoking Tobacco: Never Smokeless Tobacco: Never Alcohol Use Standard Drinks/Week Comments Yes 0 (1 standard drink = 0.6 oz pur e alcohol) 2 drinks week Sex and Gender Information Value Date Recorded Sex Assigned at Male 04/14/2019 8:19 AM CDT 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 Gender Identity Male 04/14/2019 8:19 AM CDT Sexual Orientation Straight 04/14/2019 8: 19 AM CDT documented as of this encounter Plan of Treatment Not on file documented as of this encounter Visit Diagnoses Not on filedocumented in this encounter Care Teams Project Development Engineer Relationship Specialty Start Date End Date Juan Noble MD PCP - General Family Medicine - Sports Medicine 04/07/19 Miriam Menendez MD [address] [place] [address] [phone] Assigned Heart and Vascular Provider 05/21/21 11/23/22 Miriam Menendez MD [address] [place] [address] [phone] Cardiovascular Disease 05/17/23 Miriam Menendez MD [address] [place] [address] [phone] Assigned Heart and Vascular Provider 12/06/23 documented as of this encounter
--- OUTSIDE RECORDS SUMMARY | 2025-05-28 08:25 | XMS_ITS | Encounter Summary ---
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 Gender Identity Male 04/14/2019 8:19 AM CDT Sexual Orientation Straight 04/14/2019 8: 19 AM CDT documented as of this encounter Plan of Treatment Not on file documented as of this encounter Visit Diagnoses Not on filedocumented in this encounter Care Teams Aircraft Engine Installer Relationship Specialty Start Date End Date Juan Noble MD PCP - General Family Medicine - Sports Medicine 04/07/19 Miriam Menendez MD [address] [place] [address] [phone] Cardiovascular Disease 05/17/23 Miriam Menendez MD [address] [place] [address] Assigned Heart and Vascular Provider 12/06/23 documented as of this encounter
--- OUTSIDE RECORDS SUMMARY | 2025-05-28 08:25 | XMS_ITS | Clinical Summary ---
Author Organization [facility] Address [address] [place] [id number] Phone [email or web address] Providers Care Chemical Laboratory Scientist Name Role Phone Unavailable Primary Care Provider Unavailabl e Allergies No known active allergies Medications albuterol HFA (PROVENTIL HFA;VENTOLIN HFA) 108 (90 Base) MCG/ACT inhaler INHALE 1-2 PUFFS BY MOUTH EVERY 4 HOURS IF NEEDED. 10/14/1989 Active SUMAtriptan (IMITREX) 50 MG tablet take 1-2 tablets by mouth as needed for headache. max 200mg in 24 hours 10/17/2018 Active Active Problems Problem Noted Date Diagnosed Date Thoracic ascending aortic aneurysm 04/14/2019 Overview (08/24/2019): March 2019: incidentally found 4.1 Ascending Aortic Aneurysm on CT Scan at Emergency room. Aortopathy clinic consult at [facility] April 2019: Dr. Menendez recommended yearly surveillance with imaging, beta-laura if needed for systolic blood pressure goal to stay under 130. No lifting over 40 lbs. March 2019: incidentally found 4.1 Ascending Aortic Aneurysm on CT Scan at Emergency room. Essential hypertension 06/08/2005 Migraine headache 10/14/1982 Asthma 1976 Overview (08/24/2019): Overview: May 2011: Asthma Action plan completed. symptoms intermittent. 06/26/2012 ATAQ/Asthma Action plan completed. Patient stopped adviar and no change in symptoms, using albuterol 2-3 times per month. 09/04/2013 ATAQ/Asthma Action plan completed. May 2011: Asthma Action plan completed. symptoms intermittent. 06/26/2012 ATAQ/Asthma Action plan completed. Patient stopped adviar and no change in symptoms, using albuterol 2-3 times per month. 09/04/2013 ATAQ/Asthma Action plan completed. Immunizations Immunization Administration Dates Next Due COVID-19 (Pfizer [place] 12 yrs +) (CVX-208) 09/26/2021,02/08/2021 Influenza (Flucelvax) MDCK, PF, quad (CVX-171) 07/10/2018 Influenza multi-dose VIAL (Afluria,Fluzone) trivalent (CVX-141) 08/09/2015 Influenza single-dose SYRING E (Afluria, Fluarix, Fluzone, Flulaval) trivalent (CVX-140) 07/25/2016 Influenza, (Afluria Fluarix Flulaval Fluzone) quad, PF (CVX-150) 07/07/2019 Influenza, (Afluria Fluzone) quad, PF, 6-35 mo (CVX-161) 07/30/2017 Influenza, unspecified (CVX-88) 07/12/20 21,07/29/2017,07/18/2015,2013 Td (TdVax), adult, 2 Lf teta nus toxoid, PF, adsorbed (CVX-09) 11/13/2019,09/06/2004 Tdap (ADACEL BOOSTRIX) (CVX-115) 12/16/2009 Family History Medical History Relation Name Comments Asthma Father Kwan Cancer Maternal Grandmother Magnolia Asthma Mother Asiya Cancer Mother Asiya Cancer Paternal Grandfather Sanjiv Relation Name Status Comments Father Kwan Alive Maternal Grandmother [place] Mother Asiya Alive Paternal Grandfather Sanjiv Social History Tobacco Use Types Packs/Day Years Used Date Smoking Tobacco: Never Smokeless Tobacco: Never Alcohol Use Standard Drinks/Week Comments Yes 2 (1 standard drink = 0.6 oz pur e alcohol) Intimate Partner Violence Answer Date R ecorded Insults You Not on file 01/24/2021 Threatens You Not on file 01/24/2021 Screams at You Not on file 01/24/2021 Physically Hurt Not on file 01/24/2021 Intimate Partner Violence Score Not on file 01/24/2021 Stress Answer Date Recorded Stress in your Life 0 11/24/2020 Dealing with Stress Not on file 11/24/2020 Sex and Gender Information Value Date Recorded Sex Assigned at Not on file Legal Sex Male 8:04 AM CDT Gender Identity Not on file Sexual Orientation Not on file Last Filed Vital Signs Vital Sign Reading Time Taken Comments Blood Pressure 120/70 09/21/2019 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 Pulse 70 08/24/2019 2:13 PM FARM FACILITY MANAGER Temperature 36.8 C (98.2 F) 08/24/2019 2:13 PM FARM FACILITY MANAGER Respiratory Rate 14 08/24/2019 2:13 PM FARM FACILITY MANAGER Oxygen Saturation - - Inhaled Oxygen Concentration - - Weight 87.3 kg (192 lb 6.4 oz) 09/21/2019 1:09 P M FARM FACILITY MANAGER Height 191.1 cm (6' 3.25) 09/21/2019 1:09 PM CS T Body Mass Index 23.89 09/21/2019 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 Plan of Treatment Health Maintenance Due Date Last Done Comments CT Colonography 1975 Colonoscopy 1975 Colorectal Cancer Screening Combo 1975 DNA Cologuard 1975 Dental Cleaning/Exam 1975 FIT or FOBT Test 1975 Sigmoidoscopy 1975 Hepatitis B Immunization (1 of 3 - 19+ 3-dose series) 02/25/1995 Covid-19 Immunization ( season) 2024 09/26/2021, 02/08/2021, 01/18/2021 Influenza Immunization (#1) 06/14/202506/15, 07/07/2019, 07/10/2018, Additional history exists Tetanus Diphtheria and Pertussis Immunization (3 - Td or Tdap) 11/13/2029 11/13/2019, 12/16/2009, 09/06/2004 HIB Immunization Aged Out No longer e ligible based on patient's age to complete this topic HPV Immunization Aged Out No longer e ligible based on patient's age to complete this topic Hepatitis A Immunization Aged Out No longer eligible based on patient's age to complete this topic Pneumococcal: Ped (0 to 5 Yrs) and At-Risk Member (6 to 64 Yrs) Aged Out No longer eligible based on patient's age to complete this topic Polio Immunization Aged Out No longer eligible based on patient's age to complete this topic Insurance [facility]
== END 2025-05-28 09:07 | disposition home or self-care (01) ==
PROVIDERS: Emergency Provider Family Medicine; PCP Family Medicine
DX: K59.00 Constipation, unspecified (principal); R10.9 Unspecified abdominal pain
CPT/HCPCS: 74019; 99283; 99284